=== PATIENT | female | born 1940 | race Caucasian/White ===

== ENCOUNTER 2017-01-29 22:20 | Emergency (ER) | payer MEDICARE, BC ==
[~2017-01-29 22:20] MED LIST: ACIPHEX PO; ASAB PO; COREG12 PO; GLUCOPHAGE1000 MG PO; GLUCXL2.5 PO; JANUVIA100 MG PO; L40 PO; LANTUS SC; LISINOPRIL40 MG PO; NIACIN 500 PO; NORV5 PO; PLAVIX PO; TEKTUR150 PO; ZOCOR20 PO
== END 2017-01-30 00:24 | disposition home or self-care (01) ==
LOC: ER 22:20
DX: S70.01XA Contusion of right hip, initial encounter (principal); S40.011A Contusion of right shoulder, initial encounter; I25.2 Old myocardial infarction; Z86.73 Personal history of transient ischemic attack (TIA), and cerebral infarction without residual deficits; E11.9 Type 2 diabetes mellitus without complications; Z95.5 Presence of coronary angioplasty implant and graft; Z79.899 Other long term (current) drug therapy; Z79.4 Long term (current) use of insulin; Z79.82 Long term (current) use of aspirin; Z79.84 Long term (current) use of oral hypoglycemic drugs; W19.XXXA Unspecified fall, initial encounter
CPT/HCPCS: 72170; 73030-RT; 73502-RT; 99284; A9270-GY